=== PATIENT | male | born 1975 | race Caucasian/White ===

== ENCOUNTER 2023-07-31 12:31 | Outpatient (CLI) | payer BC | END 2023-07-31 12:32 | disposition home or self-care (01) | LOC: LABBT 12:31 | PROVIDERS: ATTEND Otolaryngology Plastic Surgery within the Head & Neck | DX: Z01.810 Encounter for preprocedural cardiovascular examination (principal); J34.2 Deviated nasal septum; J34.3 Hypertrophy of nasal turbinates; J32.0 Chronic maxillary sinusitis; J32.1 Chronic frontal sinusitis; J32.2 Chronic ethmoidal sinusitis; J32.3 Chronic sphenoidal sinusitis; J33.0 Polyp of nasal cavity | CPT/HCPCS: 93005; 93010 ==

== ENCOUNTER 2023-08-02 06:20 | Day surgery (SDC) | payer BC ==
[2023-07-31 12:54] VITALS: BMI 32.3
[2023-08-02] MEDS ORDERED: Oxymetazoline HCl 0.05% (30 ML BOT) ONE (06:49)
[2023-08-02] MEDS ORDERED: fentaNYL 50 mcg/mL 1 mL Vial ONE ×3 (08:51→10:56)
[2023-08-02] MEDS ORDERED: Famotidine/PF 20 mg/2ml Vial ONE (08:51)
[2023-08-02] MEDS ORDERED: Meperidine HCl/PF 25 MG/ML VIAL ONE (08:51)
[2023-08-02] MEDS ORDERED: Metoclopramide HCl 10 MG/2 ML VIAL ONE (08:56)
[2023-08-02] MEDS ORDERED: Dexamethasone 20 MG/5 ML VIAL ONE (08:56)
[2023-08-02] MEDS ORDERED: Ondansetron PF 4 MG/2 ML Vial ONE (08:56)
[2023-08-02] MEDS ORDERED: Lidocaine 1% PF 5 ML VIAL ONE (08:56)
[2023-08-02] MEDS ORDERED: PROPOFOL 200 MG/20 ML VIAL ONE (08:56)
[2023-08-02] MEDS ORDERED: methylPREDNISolone Acetate 40 mg/ml Vial ONE (09:38)
== END 2023-08-02 13:34 | disposition home or self-care (01) ==
LOC: SDC 06:20
PROVIDERS: ATTEND Otolaryngology Plastic Surgery within the Head & Neck
PROC: 09BL8ZZ Excision of Nasal Turbinate, Via Natural or Artificial Opening Endoscopic (ICD-10-PCS; principal; 2023-08-02)
PROC: 09BR8ZZ Excision of Left Maxillary Sinus, Via Natural or Artificial Opening Endoscopic (ICD-10-PCS; principal; 2023-08-02)
PROC: 09BW8ZZ Excision of Right Sphenoid Sinus, Via Natural or Artificial Opening Endoscopic (ICD-10-PCS; principal; 2023-08-02)
PROC: 09BQ8ZZ Excision of Right Maxillary Sinus, Via Natural or Artificial Opening Endoscopic (ICD-10-PCS; principal; 2023-08-02)
PROC: 09BV8ZZ Excision of Left Ethmoid Sinus, Via Natural or Artificial Opening Endoscopic (ICD-10-PCS; principal; 2023-08-02)
PROC: 09BT8ZZ Excision of Left Frontal Sinus, Via Natural or Artificial Opening Endoscopic (ICD-10-PCS; principal; 2023-08-02)
PROC: 09BS8ZZ Excision of Right Frontal Sinus, Via Natural or Artificial Opening Endoscopic (ICD-10-PCS; principal; 2023-08-02)
PROC: 09BM8ZZ Excision of Nasal Septum, Via Natural or Artificial Opening Endoscopic (ICD-10-PCS; principal; 2023-08-02)
PROC: 09BX8ZZ Excision of Left Sphenoid Sinus, Via Natural or Artificial Opening Endoscopic (ICD-10-PCS; principal; 2023-08-02)
PROC: 09BU8ZZ Excision of Right Ethmoid Sinus, Via Natural or Artificial Opening Endoscopic (ICD-10-PCS; principal; 2023-08-02)
DX: J34.2 Deviated nasal septum (principal); J34.3 Hypertrophy of nasal turbinates; J32.9 Chronic sinusitis, unspecified; J34.89 Other specified disorders of nose and nasal sinuses; J33.9 Nasal polyp, unspecified
CPT/HCPCS: 88304; J1030; J1100; J2175; J2405; J2704; J2765; J3010; S0028